=== PATIENT | female | born 1955 | race Caucasian/White ===

== ENCOUNTER 2017-05-31 12:19 | Emergency (ER) | payer OTHER ==
[~2017-05-31] VITALS: Ht 167.6 cm; Wt 97.2 kg
[2017-05-31] MEDS ORDERED: MOTRIN600 MG PO (14:43)
[2017-05-31] MEDS ORDERED: ZOFRAN4 MG PO (14:43)
[2017-05-31] MEDS ORDERED: PERCOCET 5/31 TABLET PO (14:43)
[2017-05-31 15:06] VITALS: BP 145/86
== END 2017-05-31 15:06 | disposition home or self-care (01) ==
LOC: EME 12:19
DX: S22.42XA Multiple fractures of ribs, left side, initial encounter for closed fracture (principal); W01.190A Fall on same level from slipping, tripping and stumbling with subsequent striking against furniture, initial encounter; Y92.818 Other transport vehicle as the place of occurrence of the external cause; I10 Essential (primary) hypertension; Z79.82 Long term (current) use of aspirin
CPT/HCPCS: 71101; 73030; 99281; 99284; J3010